=== PATIENT | female | born 1970 | race Caucasian/White ===

== ENCOUNTER 2025-06-05 20:53 | Emergency (ER) | payer BC ==
[2025-06-05] MEDS ORDERED: Lidocaine/Transparent Dressing 1 EACH KIT ONE (22:13)
[2025-06-05] MEDS ORDERED: Ibuprofen 200 MG TAB ONE (22:22)
[2025-06-05] MEDS ORDERED: Bacitracin 1 PK ONE (22:36)
== END 2025-06-05 22:55 | disposition home or self-care (01) ==
LOC: BURERS 20:53
DX: S61.411A Laceration without foreign body of right hand, initial encounter (principal); E03.9 Hypothyroidism, unspecified; W26.8XXA Contact with other sharp object(s), not elsewhere classified, initial encounter; Z23 Encounter for immunization
CPT/HCPCS: 12001; 90471; 90715